=== PATIENT | male | born 1980 | race Caucasian/White ===

== ENCOUNTER 2017-12-18 16:53 | Emergency (ER) | payer SELFPAY | END 2017-12-18 18:20 | disposition home or self-care (01) | LOC: ER 16:53 | DX: M54.5 Low back pain (principal); Z88.0 Allergy status to penicillin | CPT/HCPCS: 99282 ==

== ENCOUNTER 2018-02-04 18:05 | Emergency (ER) | payer SELFPAY ==
[~2018-02-04] VITALS: Ht 182.9 cm; Wt 83.9 kg
[~2018-02-04 18:05] MED LIST: IBUP-1060 PO
[2018-02-04 19:09] VITALS: BP 146/97
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
[2018-02-04] MEDS ORDERED: DIPHTH,PERTUSS(ACELL),TET TOX 0.5 ML DISP.SYRIN. VAX IM ONE (19:15)
[2018-02-04] MEDS ORDERED: IBUPROFEN 800 MG TABLET. PO ONE (19:15)
[2018-02-04] MEDS ORDERED: IBUP-1060 PO (20:15)
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
== END 2018-02-04 20:33 | disposition home or self-care (01) ==
LOC: ER 18:05
DX: S93.402A Sprain of unspecified ligament of left ankle, initial encounter (principal); S80.812A Abrasion, left lower leg, initial encounter; Z88.0 Allergy status to penicillin; W23.1XXA Caught, crushed, jammed, or pinched between stationary objects, initial encounter; Y93.89 Activity, other specified; Y92.89 Other specified places as the place of occurrence of the external cause; Y99.8 Other external cause status
CPT/HCPCS: 73590; 73610; 90471; 90715; 99284